=== PATIENT | male | born 1940 | race Caucasian/White ===

== ENCOUNTER 2016-09-11 14:01 | Emergency (ER) | payer MEDICARE ==
[~2016-09-11] VITALS: Ht 182.9 cm; Wt 98.4 kg
[~2016-09-11 14:01] MED LIST: AMLO10TA2 PO; CEPH-368 PO; CITA20TA5 PO; CITA40TA5 PO; COLE1TAB4 PO; EZET10TA3 PO; IRBE300T16 PO; METF500T4 PO; METF500T9 PO; OLME40TA PO; OXYC5CAP4 PO; SILV20CR4 EXT; TERA1CAP3 PO; ZOLP5TAB6 PO
[2016-09-11] MEDS ORDERED: DIPH,PERTUSS(ACELL),TET VAC/PF 0.5 ML IM-VACC ONE ×2 (15:18→15:30)
[2016-09-11] MEDS ORDERED: LIDOCAINE 1%, 20ML ONE ×2 (15:18→17:52)
[2016-09-11] MEDS ORDERED: LIDOCAINE 1%, 20ML SQ ONE (15:30)
[2016-09-11] MEDS ORDERED: CEFAZOLIN 1,000 MG IM ONE (16:00)
[2016-09-11] MEDS ORDERED: CEFAZOLIN 1,000 MG ONE (16:22)
[2016-09-11] MEDS ORDERED: BACITRACIN ZINC OINT 500U/GM, 0.9 GM ONE (18:26)
[2016-09-11 19:16] VITALS: BP 128/86
[2016-09-13] MEDS ORDERED: CALC1CAP8 PO (10:11)
[2016-09-13] MEDS ORDERED: METF500T4 PO (10:11)
== END 2016-09-11 19:18 | disposition home or self-care (01) ==
LOC: ED 14:34
DX: S61.213A Laceration without foreign body of left middle finger without damage to nail, initial encounter (principal); S61.217A Laceration without foreign body of left little finger without damage to nail, initial encounter; W19.XXXA Unspecified fall, initial encounter; Y93.89 Activity, other specified; Y92.89 Other specified places as the place of occurrence of the external cause; Y99.8 Other external cause status
CPT/HCPCS: 12001; 13121; 13122; 73130; 90471; 90715; 96372; 99285; J0690

== ENCOUNTER → 2016-11-28 | Outpatient (CLI) | payer MEDICARE ==
[~2016-11-28] MED LIST changes: +CALC1CAP8 PO
== END | disposition home or self-care (01) ==
LOC: RAD 12:34
PROVIDERS: ATTEND Internal Medicine
DX: Z01.810 Encounter for preprocedural cardiovascular examination (principal); I49.9 Cardiac arrhythmia, unspecified; J84.10 Pulmonary fibrosis, unspecified; E11.9 Type 2 diabetes mellitus without complications
CPT/HCPCS: 71020; 93005

== ENCOUNTER 2017-10-08 10:37 | Emergency (ER) | payer MEDICARE ==
[~2017-10-08] VITALS: Ht 182.9 cm; Wt 87.0 kg
[~2017-10-08 10:37] MED LIST changes: -COLE1TAB4 PO; +COLE1TAB5 PO; +EZET10TA18 PO; -EZET10TA3 PO; -OLME40TA PO; +OLME40TA12 PO; +OXYC5CAP2 PO; -OXYC5CAP4 PO; +SILV20CR13 EXT; -SILV20CR4 EXT
[2017-10-08] MEDS ORDERED: TEMA7.5C PO (11:10)
[2017-10-08 11:19] VITALS: BP 124/75
== END 2017-10-08 11:58 | disposition home or self-care (01) ==
LOC: ED 11:25
DX: J70.5 Respiratory conditions due to smoke inhalation (principal); E11.9 Type 2 diabetes mellitus without complications; E78.5 Hyperlipidemia, unspecified; I10 Essential (primary) hypertension; I48.91 Unspecified atrial fibrillation; Z87.891 Personal history of nicotine dependence; X08.8XXA Exposure to other specified smoke, fire and flames, initial encounter; Y93.89 Activity, other specified; Y99.8 Other external cause status; Y92.009 Unspecified place in unspecified non-institutional (private) residence as the place of occurrence of the external cause
CPT/HCPCS: 99282